=== PATIENT | female | born 2000 | race Caucasian/White ===

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

== ENCOUNTER 2019-02-17 10:42 | Outpatient (CLI) | payer OTHER ==
--- NOTE | 2019-02-18 09:02 | Ultrasound Report ---
Reason: LOWER ABD PAIN Procedure Date: 02/17/2019 Accession Number: [id number] / [id number] Procedure: US - Abdomen Complete CPT Code: FULL RESULT: EXAM: ABDOMEN ULTRASOUND EXAM DATE: 02/17/2019 12:26 PM. CLINICAL HISTORY: LOWER ABD PAIN. COMPARISON: None. TECHNIQUE: Real-time scanning was performed with static images obtained. FINDINGS: Liver: Normal in size and echotexture. 17 cm. Main portal vein flow: Hepatopetal. Gallbladder: Normal. No stones, wall thickening, or sonographic Daniels's sign. Biliary System: Common bile duct measures 4.5 mm. No intrahepatic or extrahepatic ductal dilatation. Pancreas: Imaged portion is unremarkable. Kidneys: Right: 11.1 cm longitudinally. Normal. No contour-deforming mass, stones, or hydronephrosis. Left: 11.9 cm longitudinally. Normal. No contour-deforming mass, stones, or hydronephrosis. Spleen: 13.2 cm. Normal in size and echotexture. Aorta and Inferior Vena Cava: Unremarkable. Free fluid: None. IMPRESSION: Normal abdomen ultrasound. RADIA
== END 2019-02-17 10:43 | disposition home or self-care (01) ==
LOC: DI 10:42
PROVIDERS: ATTEND Physician Assistant Medical
DX: R10.30 Lower abdominal pain, unspecified (principal)
CPT/HCPCS: 76700

== ENCOUNTER 2019-02-26 15:59 | Outpatient (CLI) | payer OTHER ==
--- NOTE | 2019-02-27 13:48 | XRAY Report ---
Reason: LOW BACK PAIN Procedure Date: 02/26/2019 Accession Number: [id number] / [id number] Procedure: XR - Thoracic Spine 2 View CPT Code: FULL RESULT: EXAM: THORACIC SPINE RADIOGRAPHY EXAM DATE: 02/26/2019 04:23 PM. CLINICAL HISTORY: LOW BACK PAIN. COMPARISON: None. TECHNIQUE: 3 views. FINDINGS: Alignment: There is mild mid thoracic dextroscoliosis, 10 degrees. No spondylolisthesis. Bones: No fractures or bone lesions. Disks: Normal. Disk heights are maintained. Soft Tissues: Normal. The visualized lungs and cardiomediastinal silhouette are normal. IMPRESSION: Mild mid thoracic dextroscoliosis; otherwise, negative thoracic spine radiography. RADIA
--- NOTE | 2019-02-27 13:49 | XRAY Report ---
Reason: LOW BACK PAIN Procedure Date: 02/26/2019 Accession Number: [id number] / [id number] Procedure: XR - Lumbar Spine 2 View CPT Code: FULL RESULT: EXAM: LUMBOSACRAL SPINE RADIOGRAPHY EXAM DATE: 02/26/2019 04:24 PM. CLINICAL HISTORY: LOW BACK PAIN. COMPARISONS: None. TECHNIQUE: 2 views. FINDINGS: Alignment: No spondylolisthesis or scoliosis. Bones: Five hny-lbg-gavzpsq lumbar vertebral bodies are present. No fractures or bone lesions. Disks: Disk heights are maintained. Facets: No degenerative changes. Sacroiliac Joints: Unremarkable. Soft Tissues: The visualized bowel gas pattern is normal. IMPRESSION: Negative lumbar spine radiography. RADIA
== END 2019-02-26 16:00 | disposition home or self-care (01) ==
LOC: DI 15:59
PROVIDERS: ATTEND Physician Assistant Medical
DX: M54.5 Low back pain (principal); M41.84 Other forms of scoliosis, thoracic region
CPT/HCPCS: 72070; 72100

== ENCOUNTER 2019-03-04 11:05 | Emergency (ER) | payer OTHER ==
[2019-03-04 11:39] LABS: BASOPHILS % (AUTO) 0.5 %; EOSINOPHILS # (AUTO) 0.1 10^3/uL (0.0-0.7); EOSINOPHILS % (AUTO) 1.8 %; HGB - HEMOGLOBIN 12.3 g/dL (12.0-16.0); LYMPHOCYTES # (AUTO) 1.9 10^3/uL (1.5-3.5); LYMPHOCYTES % (AUTO) 26.3 %; MEAN CORPUSCULAR HEMOGLOBIN 30.7 pg (27.0-31.0); MEAN CORPUSCULAR VOLUME 90.3 fL (81.0-99.0); MEAN PLATELET VOLUME 10.3 fL (7.9-10.8); MONOCYTES # (AUTO) 0.5 10^3/uL (0.0-1.0); MONOCYTES % (AUTO) 6.2 %; NEUTROPHILS # (AUTO) 4.7 10^3/uL (1.5-6.6); NEUTROPHILS % (AUTO) 64.9 %; PLT - PLATELET COUNT 286 10^3/uL (130-450); RED BLOOD COUNT 4.01 10^6/uL (4.20-5.40); RED CELL DISTRIBUTION WIDTH 12.3 % (12.0-15.0); WHITE BLOOD COUNT 7.3 x10^3/uL (4.8-10.8)
[2019-03-04 11:43] LABS: BILIRUBIN,URINE NEGATIVE (NEGATIVE); GLUCOSE, URINE (UA) NEGATIVE (NEGATIVE); KETONES,URINE (UA) NEGATIVE (NEGATIVE); LEUKOCYTE ESTERASE, URINE NEGATIVE (NEGATIVE); NITRITE,URINE NEGATIVE (NEGATIVE); OCCULT BLOOD,URINE NEGATIVE (NEGATIVE); PH,URINE 7.5 PH (5.0-7.5); PROTEIN,URINE NEGATIVE (NEGATIVE); UROBILINOGEN,URINE 0.2 (NORMAL) E.U./dL (NORMAL)
[2019-03-04 11:46] LABS: CLARITY,URINE CLEAR (CLEAR); HCG UR QUAL NEGATIVE
[2019-03-04 11:53] LABS: ALBUMIN 4.4 g/dL (3.2-5.5); ALBUMIN/GLOBULIN RATIO 1.8 (1.0-2.2); BILIRUBIN,TOTAL 0.8 mg/dL (0.2-1.0); CALCIUM 9.5 mg/dL (8.5-10.3); CREATININE 0.8 mg/dL (0.4-1.0); TOTAL PROTEIN 6.9 g/dL (6.7-8.2)
[2019-03-04] MEDS ORDERED: LIDOCAINE VISCOUS 2% 15 ML UDC MM STA (12:32)
[2019-03-04] MEDS ORDERED: MAG HYDROX/AL HYDROX/SIMETH 30 ML UDC PO STA (12:32)
--- NOTE | 2019-03-04 12:37 | ED Physician Documentation ---
PD HPI ABD PAIN - Stated complaint Stated Complaint: ABD PX/BACK PX - Chief complaint Chief Complaint: Abd Pain - History obtained from History obtained from: Patient - History of Present Illness Timing - onset: Other (Healthy young woman status post remote appendectomy in about 2009. For the last month she has had left flank, left abdomen, and right lower quadrant abdominal pain. She just finished up her menses, normal time, normal flow, her symptoms did not change. She is sexually active with a single partner, they have been together for 3 years and she denies significant concern for STDs. She has no vaginal discharge. She denies sore throat. She is short of breath especially yesterday. It hurts with movement and twisting as well. She denies nausea. She was constipated but is now regular with normal bowel movements. She was seen at [facility] about 4 days ago. Records reviewed, she had a mildly elevated white blood cell count at 12.9 with a left shift. The remainder of her labs were grossly negative note made of very mildly elevated AST at 42. She had a negative urine. CAT scan of the abdomen with IV contrast was normal. She was started on omeprazole.) Review of Systems Constitutional: denies: Fever, Chills, Fatigue, Weight Loss Nose: denies: Rhinorrhea / runny nose, Congestion Throat: denies: Sore throat Cardiac: denies: Chest pain / pressure, Palpitations, Pedal edema, Calf pain Respiratory: reports: Dyspnea. denies: Cough GI: reports: Abdominal Pain, Constipation. denies: Nausea, Vomiting, Diarrhea, Hematemesis, Bloody / black stool : denies: Dysuria, Frequency PD PAST MEDICAL HISTORY - Past Medical History Past Medical History: No - Past Surgical History Past Surgical History: Yes General: Appendectomy - Present Medications Home Medications: Ambulatory Orders Medication Instructions Recorded Confirmed Hydrocodone/Acetaminophen 1 - 2 each PO Q6H PRN #14 tablet 03/04/19 [Hydrocodon-Acetaminophen 5-325] Omeprazole 20 mg PO 03/04/19 Tizanidine HCl [Zanaflex] 2 mg PO TID PRN 03/04/19 03/04/19 - Allergies Allergies/Adverse Reactions: Allergies Allergy/AdvReac Type Severity Reaction Status Date / Time No Known Drug Allergies Allergy Verified 03/04/19 11:14 - Social History Does the pt smoke?: No Smoking Status: Never smoker - Family History Family history: reports: Non contributory PD ED PE NORMAL - Vitals Vital signs reviewed: Yes - General General: Alert and oriented X 3, No acute distress - HEENT HEENT: PERRL, EOMI, Pharynx benign - Neck Neck: Supple, no meningeal sign, No bony TTP, No adenopathy - Cardiac Cardiac: RRR, No murmur - Respiratory Respiratory: No respiratory distress, Clear bilaterally - Abdomen Abdomen: Normal bowel sounds, Soft, Other (Mild tenderness of left upper quadrant greater than the right lower quadrant greater than the left lower quadrant) - Back Back: No CVA TTP - Derm Derm: Normal color, Warm and dry - Extremities Extremities: No edema, No calf tenderness / cord - Neuro Neuro: Alert and oriented X 3, Normal speech Results - Vitals Vitals: Vital Signs - 24 hr 03/04/19 03/04/19 03/04/19 11:09 12:49 13:07 Temperature 36 C L 37.1 C Heart Rate 54 L 57 L 79 Respiratory 16 16 16 Rate Blood Pressure 115/71 123/87 H 118/66 O2 Saturation 100 100 98 Oxygen O2 Source Room air - Labs Labs: Laboratory Tests 03/04/19 03/04/19 03/04/19 11:17 11:30 11:30 WBC 7.3 RBC 4.01 L Hgb 12.3 Hct 36.2 L MCV 90.3 MCH 30.7 MCHC 34.0 RDW 12.3 Plt Count 286 MPV 10.3 Neut # (Auto) 4.7 Lymph # (Auto) 1.9 Will # (Auto) 0.5 Eos # (Auto) 0.1 Baso # (Auto) 0.0 Absolute Nucleated RBC 0.00 Nucleated RBC % 0.0 D-Dimer Sodium 143 Potassium 3.9 Chloride 108 Carbon Dioxide 27 Anion Gap 8.0 BUN 8 Creatinine 0.8 Estimated GFR (MDRD) 91 Glucose 101 H Calcium 9.5 Total Bilirubin 0.8 AST 23 ALT 30 Alkaline Phosphatase 37 L Total Protein 6.9 Albumin 4.4 Globulin 2.5 Albumin/Globulin Ratio 1.8 Lipase 36 Urine Color YELLOW Urine Clarity CLEAR Urine pH 7.5 Ur Specific [place] 1.015 Urine Protein NEGATIVE Urine Glucose (UA) NEGATIVE Urine Ketones NEGATIVE Urine Occult Blood NEGATIVE Urine Nitrite NEGATIVE Urine Bilirubin NEGATIVE Urine Urobilinogen 0.2 (NORMAL) Ur Leukocyte Esterase NEGATIVE Ur Microscopic Review NOT INDICATED Urine Culture Comments NOT INDICATED Urine HCG, Qual NEGATIVE Infectious Will Assay 03/04/19 03/04/19 11:30 11:30 WBC RBC Hgb Hct MCV MCH MCHC RDW Plt Count MPV Neut # (Auto) Lymph # (Auto) Will # (Auto) Eos # (Auto) Baso # (Auto) Absolute Nucleated RBC Nucleated RBC % D-Dimer < 200.0 L Sodium Potassium Chloride Carbon Dioxide Anion Gap BUN Creatinine Estimated GFR (MDRD) Glucose Calcium Total Bilirubin AST ALT Alkaline Phosphatase Total Protein Albumin Globulin Albumin/Globulin Ratio Lipase Urine Color Urine Clarity Urine pH Ur Specific [place] Urine Protein Urine Glucose (UA) Urine Ketones Urine Occult Blood Urine Nitrite Urine Bilirubin Urine Urobilinogen Ur Leukocyte Esterase Ur Microscopic Review Urine Culture Comments Urine HCG, Qual Infectious Will Assay NEGATIVE - Rads (name of study) Pelvic sono Radiology: EMP read contemporaneously (1.6 cm right paraovarian cyst with small free fluid) PD MEDICAL DECISION MAKING - ED course ED course: This young lady presents with persistent abdominal and pelvic pain. Work-up so far has been negative. Today found to have paraovarian cyst which may be causative and gynecology follow-up was advised. Departure - Departure Disposition: 01 Home, Self Care Clinical Impression: Cyst of ovary Qualifiers: Laterality: right Qualified Code(s): N83.201 - Unspecified ovarian cyst, right side Condition: Good Record reviewed to determine appropriate education?: Yes Instructions: ED Cyst Ovarian Follow-Up: [facility] [Provider Group] Prescriptions: Hydrocodone/Acetaminophen [Hydrocodon-Acetaminophen 5-325] 1 - 2 each PO Q6H PRN #14 tablet PRN Reason: pain Comments: You can continue the ibuprofen as needed for pain, add the hydrocodone when it is bad. Do not drink or drive with hydrocodone. Follow-up with the gynecology office for further evaluation and treatment. Return for new worsening symptoms.
--- NOTE | 2019-03-04 14:16 | Ultrasound Report ---
Reason: pelvic pain, R Procedure Date: 03/04/2019 Accession Number: [id number] / [id number] Procedure: US - Pelvic w/Transvag+Doppler Comp CPT Code: FULL RESULT: EXAM: PELVIC ULTRASOUND EXAM DATE: 03/04/2019 02:07 PM. CLINICAL HISTORY: Pelvic pain, R. COMPARISON: None. TECHNIQUE: Realtime transabdominal pelvic scan performed to identify the uterus and adnexa and as an overview of other pelvic structures, followed by transvaginal scan to provide greater detail of the uterus and adnexa, with static image documentation. FINDINGS: Uterus: 6.1 x 2.9 x 4.1 cm, volume 38 cc. Anteverted position. Normal overall size and echotexture. Masses: None. Endometrium: 1.8 mm. Normal. Cervix: Unremarkable. Right Ovary: 3.8 x 2 x 2.6 cm, volume 10.3 cc. Normal echotexture and blood flow. Peak systolic velocity 9.3 cm per second. Resistive index 0.57. Arterial and venous blood flow Left Ovary: 3.2 x 2 x 2.5 cm, volume 8.3 cc. Normal echotexture and blood flow. Peak systolic velocity 17 cm/s. Resistive index 0.6. Arterial and venous blood flow Free Fluid: Free fluid along right ovary with right paraovarian or peritoneal 1.6 cm cyst Other: None. IMPRESSION: 1. Simple right paraovarian or peritoneal 1.6 cm cyst. 2. Small amount of simple free fluid in the cul-de-sac, adjacent to the right ovary 3. Normal blood flow bilateral ovaries RADIA
[2019-03-04 14:42] VITALS: BP 116/64
== END 2019-03-04 14:42 | disposition home or self-care (01) ==
LOC: ED 11:05
DX: N83.201 Unspecified ovarian cyst, right side (principal)
CPT/HCPCS: 36415; 76830; 76856; 80053; 81003; 81025; 83690; 85025; 85379; 86308; 93975; 99283; 99284; A9270; 81001; 87086

== ENCOUNTER 2019-03-20 08:00 | Outpatient (CLI) | payer OTHER ==
[2019-03-21 22:02] LABS: TRICHOMONAS VAGINALIS DNA NEGATIVE (NEGATIVE)
== END 2019-03-20 08:01 | disposition home or self-care (01) ==
LOC: LAB.R 08:00
PROVIDERS: ATTEND Obstetrics & Gynecology
DX: N83.201 Unspecified ovarian cyst, right side (principal)
CPT/HCPCS: 87491; 87591; 87661

== ENCOUNTER 2019-04-14 10:00 | Outpatient (CLI) | payer OTHER ==
--- NOTE | 2019-04-14 11:48 | Ultrasound Report ---
Reason: OVARIAN CYST RIGHT SIDE Procedure Date: 04/14/2019 Accession Number: [id number] / [id number] Procedure: US - Pelvic w/Transvaginal CPT Code: Final Report FULL RESULT: EXAM: PELVIC ULTRASOUND EXAM DATE: 04/14/2019 10:58 AM. CLINICAL HISTORY: Right ovarian cyst. COMPARISON: PEL NON OB W/TV DOP 03/04/2019 1:17 PM. TECHNIQUE: Realtime transabdominal pelvic scan performed to identify the uterus and adnexa and as an overview of other pelvic structures, followed by transvaginal scan to provide greater detail of the uterus and adnexa, with static image documentation. FINDINGS: Uterus: 7.2 x 2.6 x 3.8 cm, volume 37 cc. Anteverted position. Normal overall size and echotexture. Masses: None. Endometrium: 5 mm. Normal. Cervix: Unremarkable. Right Ovary: 3.5 x 2.5 x 3.1 cm, volume 14 cc. Small 2.4 cm benign physiologic follicle is seen, otherwise, normal echotexture and blood flow. Left Ovary: 2.9 x 2.6 x 2.0 cm, volume 7.9 cc. Normal echotexture and blood flow. Free Fluid: Small simple-appearing fluid is seen in the dependent pelvis, within normal physiologic limits. Other: None. IMPRESSION: Negative pelvic ultrasound with previous right parovarian cyst no longer seen. Small 2.4 cm simple physiologic follicle is seen within the ovary, normal. No complex cyst or adnexal mass is demonstrated. RADIA
== END 2019-04-14 10:01 | disposition home or self-care (01) ==
LOC: DI 10:00
PROVIDERS: ATTEND Obstetrics & Gynecology
DX: N83.201 Unspecified ovarian cyst, right side (principal)
CPT/HCPCS: 76830; 76856

== ENCOUNTER 2019-04-16 18:11 | Emergency (ER) | payer OTHER ==
[2019-04-16 18:47] LABS: BILIRUBIN,URINE NEGATIVE (NEGATIVE); GLUCOSE, URINE (UA) NEGATIVE (NEGATIVE); KETONES,URINE (UA) 40 mg/dL (NEGATIVE); LEUKOCYTE ESTERASE, URINE NEGATIVE (NEGATIVE); NITRITE,URINE NEGATIVE (NEGATIVE); OCCULT BLOOD,URINE NEGATIVE (NEGATIVE); PROTEIN,URINE NEGATIVE (NEGATIVE); UROBILINOGEN,URINE 0.2 (NORMAL) E.U./dL (NORMAL)
[2019-04-16] MEDS ORDERED: SODIUM CHLORIDE 0.9% 1,000 ML IV ONE (19:04)
[2019-04-16] MEDS ORDERED: ONDANSETRON 4 MG/2 ML VIAL IVP STA (19:04)
[2019-04-16 19:06] LABS: CLARITY,URINE CLEAR (CLEAR); HCG UR QUAL NEGATIVE
--- NOTE | 2019-04-16 19:06 | ED Physician Documentation ---
PD HPI ABD PAIN - Stated complaint Stated Complaint: NAUSEA/AB PX/R FLANK PX/BACK PX - Chief complaint Chief Complaint: Abd Pain - History obtained from History obtained from: Patient - History of Present Illness Timing - onset: Other (This 18-year-old woman without history of abdominal surgeries has been dealing with left-sided abdominal pain for the last 2 months. Initially she was diagnosed with an ovarian cyst but subsequently had an ultrasound 2 days ago which showed resolution of same. Despite that the pain continues and is severe at times. Its associated with constipation, her last bowel movement was 2 to 3 days ago despite taking MiraLAX and fiber supplements. She denies any weight loss to this time. She is been nauseous but not vomiting. She is sexually active but has had negative STD testing during that time. She has had irregular menses despite taking control.) Review of Systems Ten Systems: 10 systems reviewed and negative Constitutional: denies: Fever, Chills, Fatigue, Weight Loss GI: reports: Abdominal Pain, Nausea, Constipation. denies: Vomiting, Diarrhea, Hematemesis, Bloody / black stool PD PAST MEDICAL HISTORY - Past Surgical History Past Surgical History: Yes General: Appendectomy - Present Medications Home Medications: Ambulatory Orders Medication Instructions Recorded Confirmed Hydrocodone/Acetaminophen 1 - 2 each PO Q6H PRN #14 tablet 03/04/19 [Hydrocodon-Acetaminophen 5-325] Omeprazole 20 mg PO 03/04/19 Tizanidine HCl [Zanaflex] 2 mg PO TID PRN 03/04/19 03/04/19 Dicyclomine [Bentyl] 20 mg PO QID PRN #15 capsule 04/16/19 Doxycycline Hyclate 100 mg PO BID #20 capsule 04/16/19 Ondansetron Odt [Zofran] 4 mg TL Q6H PRN #10 tablet 04/16/19 - Allergies Allergies/Adverse Reactions: Allergies Allergy/AdvReac Type Severity Reaction Status Date / Time No Known Drug Allergies Allergy Verified 04/16/19 18:21 - Social History Does the pt smoke?: No Smoking Status: Never smoker PD ED PE NORMAL - Vitals Vital signs reviewed: Yes - General General: Alert and oriented X 3, No acute distress - Respiratory Respiratory: No respiratory distress, Clear bilaterally - Abdomen Abdomen: Normal bowel sounds, Soft, Other (Moderately tender to the left mid abdomen without surgical signs) - Female 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3 Hct 38.8 MCV 88.0 MCH 30.2 MCHC 34.3 RDW 12.1 Plt Count 293 MPV 10.5 Neut # (Auto) 8.2 H Lymph # (Auto) 2.3 [place] # (Auto) 0.6 Eos # (Auto) 0.1 Baso # (Auto) 0.1 Absolute Nucleated RBC 0.00 Nucleated RBC % 0.0 Sodium 139 Potassium 3.5 Chloride 104 Carbon Dioxide 26 Anion Gap 9.0 BUN 9 Creatinine 0.7 Estimated GFR (MDRD) 107 Glucose 96 Calcium 9.3 Total Bilirubin 1.2 H AST 23 ALT 24 Alkaline Phosphatase 31 L Total Protein 7.5 Albumin 4.5 Globulin 3.0 Albumin/Globulin Ratio 1.5 Lipase 36 Urine Color YELLOW Urine Clarity CLEAR Urine pH 7.0 Ur Specific [place] 1.010 Urine Protein NEGATIVE Urine Glucose (UA) NEGATIVE Urine Ketones 40 H Urine Occult Blood NEGATIVE Urine Nitrite NEGATIVE Urine Bilirubin NEGATIVE Urine Urobilinogen 0.2 (NORMAL) Ur Leukocyte Esterase NEGATIVE Ur Microscopic Review NOT INDICATED Urine Culture Comments NOT INDICATED Urine HCG, Qual NEGATIVE - Rads (name of study) CT A/P Radiology: EMP read contemporaneously (Cul-de-sac free fluid, otherwise negative exam) PD MEDICAL DECISION MAKING - ED course ED course: 18-year-old woman presents with now subacute abdominal pain. She is had a negative gallbladder ultrasound. She had a pelvic ultrasound showing a right ovarian cyst which has since resolved. Today a CT was done showing some pelvic free fluid. Otherwise her work-up was negative except for a mild leukocytosis. She was fairly tender on pelvic exam this could be consistent with an early PID for which she will be trialed on some antibiotics but she does have follow-up with GI in a few days. Departure - Departure Disposition: 01 Home, Self Care Clinical Impression: Abdominal pain Qualifiers: Abdominal location: generalized Qualified Code(s): R10.84 - Generalized abdominal pain Condition: Good Record reviewed to determine appropriate education?: Yes Instructions: ED Abdominal Pain Unkn Cause Prescriptions: Dicyclomine [Bentyl] 20 mg PO QID PRN #15 capsule PRN Reason: Abdominal Pain Doxycycline Hyclate 100 mg PO BID #20 capsule Ondansetron Odt [Zofran] 4 mg TL Q6H PRN #10 tablet PRN Reason: Nausea / Vomiting Comments: The cause of your abdominal pain is not completely clear. The only pertinent positive finding tonight besides mild dehydration was a tender pelvic exam and free fluid on an abdominal CT. We will trial some antibiotics but I am happy that you are seeing a film processing supervisor later this week. Return for new or worsening symptoms. Discharge Date/Time: 04/16/19 22:10
[2019-04-16 19:07] LABS: BASOPHILS # (AUTO) 0.1 10^3/uL (0.0-0.1); BASOPHILS % (AUTO) 0.4 %; EOSINOPHILS # (AUTO) 0.1 10^3/uL (0.0-0.7); HGB - HEMOGLOBIN 13.3 g/dL (12.0-16.0); LYMPHOCYTES # (AUTO) 2.3 10^3/uL (1.5-3.5); LYMPHOCYTES % (AUTO) 20.5 %; MEAN CORPUSCULAR HEMOGLOBIN 30.2 pg (27.0-31.0); MEAN CORPUSCULAR HGB CONC 34.3 g/dL (32.0-36.0); MEAN PLATELET VOLUME 10.5 fL (7.9-10.8); MONOCYTES # (AUTO) 0.6 10^3/uL (0.0-1.0); MONOCYTES % (AUTO) 5.4 %; NEUTROPHILS # (AUTO) 8.2 10^3/uL (1.5-6.6); NEUTROPHILS % (AUTO) 72.1 %; PLT - PLATELET COUNT 293 10^3/uL (130-450); RED BLOOD COUNT 4.41 10^6/uL (4.20-5.40); RED CELL DISTRIBUTION WIDTH 12.1 % (12.0-15.0); WHITE BLOOD COUNT 11.3 x10^3/uL (4.8-10.8)
[2019-04-16 19:27] LABS: ALBUMIN 4.5 g/dL (3.2-5.5); ALBUMIN/GLOBULIN RATIO 1.5 (1.0-2.2); BILIRUBIN,TOTAL 1.2 mg/dL (0.2-1.0); CALCIUM 9.3 mg/dL (8.5-10.3); CREATININE 0.7 mg/dL (0.4-1.0); TOTAL PROTEIN 7.5 g/dL (6.7-8.2)
[2019-04-16] MEDS ORDERED: IOVERSOL 320 50 ML VIAL ONE (19:27)
[2019-04-16] MEDS ORDERED: IOVERSOL 320 100 ML VIAL IVP ONE ×2 (19:27→20:24)
[2019-04-16] MEDS ORDERED: IOVERSOL 320 50 ML VIAL PO ONE (20:24)
[2019-04-16 20:50] VITALS: BP 119/78
--- NOTE | 2019-04-16 21:01 | CT Report ---
Reason: IV and PO, L abd pain Procedure Date: 04/16/2019 Accession Number: [id number] / [id number] Procedure: CT - Abdomen/Pelvis W CPT Code: Final Report FULL RESULT: EXAM: CT ABDOMEN AND PELVIS EXAM DATE: 04/16/2019 08:27 PM. CLINICAL HISTORY: IV and PO, L abd pain. Previous appendectomy. COMPARISONS: PELVIC W/TRANSVAGINAL 04/14/2019 10:24 AM. TECHNIQUE: Routine helical CT imaging was performed through the abdomen and pelvis. IV contrast: OPTI 320 100ML. Enteric contrast: Yes. Reconstructions: Coronal and sagittal. In accordance with CT protocol optimization, one or more of the following dose reduction techniques were utilized for this exam: automated exposure control, adjustment of mA and/or KV based on patient size, or use of iterative reconstructive technique. FINDINGS: Lung Bases: Unremarkable. Liver: Normal. No masses. Gallbladder/Bile Ducts: Unremarkable. Spleen: Normal. Pancreas: Normal. Adrenal Glands: Normal. Kidneys: Normal. No masses or hydronephrosis. Peritoneal Cavity/Bowel: There is oral contrast within the stomach, small bowel and cecum. No dilated bowel or mechanical bowel obstruction. No free air. No inflammation around the terminal ileum or cecum. Pelvic Organs: There is free fluid in the posterior cul-de-sac of the pelvis measuring 70 x 26 x 22 mm. No abscess. Uterus is normal in size. Urinary bladder appears unremarkable. There is a hypodense lesion in the right ovary measuring 14 mm in diameter. Vasculature: No aneurysms or other significant abnormality. Bones: No significant abnormality. Other: None. IMPRESSION: 1. Small free fluid in posterior cul-de-sac and pelvis. 2. 14 mm follicle or cyst in the right ovary. 3. No other significant acute abnormality. RADIA
[2019-04-16] MEDS ORDERED: DOXYCYCLINE 100 MG TABLET PO STA (21:29)
[2019-04-16] MEDS ORDERED: cefTRIAXone 1 GM in SODIUM CHLORIDE 0.9% MINIBAG 100 ML IV STA (21:29)
[2019-04-17 21:34] LABS: TRICHOMONAS VAGINALIS DNA NEGATIVE (NEGATIVE)
== END 2019-04-16 22:10 | disposition home or self-care (01) ==
LOC: ED 18:11
DX: R10.84 Generalized abdominal pain (principal); E86.0 Dehydration; D72.829 Elevated white blood cell count, unspecified; N83.201 Unspecified ovarian cyst, right side
CPT/HCPCS: 36415; 74177; 80053; 81003; 81025; 83690; 85025; 87491; 87591; 87661; 96374; 96375; 99284; A9270; Q9967; 81001; 87086

== ENCOUNTER 2019-04-29 15:13 | Emergency (ER) | payer OTHER ==
[2019-04-29 16:08] LABS: BASOPHILS # (AUTO) 0.1 10^3/uL (0.0-0.1); BASOPHILS % (AUTO) 0.6 %; EOSINOPHILS # (AUTO) 0.1 10^3/uL (0.0-0.7); HGB - HEMOGLOBIN 13.2 g/dL (12.0-16.0); LYMPHOCYTES # (AUTO) 1.7 10^3/uL (1.5-3.5); LYMPHOCYTES % (AUTO) 19.4 %; MEAN CORPUSCULAR HEMOGLOBIN 30.3 pg (27.0-31.0); MEAN CORPUSCULAR HGB CONC 33.6 g/dL (32.0-36.0); MEAN CORPUSCULAR VOLUME 90.1 fL (81.0-99.0); MEAN PLATELET VOLUME 10.1 fL (7.9-10.8); MONOCYTES # (AUTO) 0.5 10^3/uL (0.0-1.0); MONOCYTES % (AUTO) 5.5 %; NEUTROPHILS # (AUTO) 6.4 10^3/uL (1.5-6.6); PLT - PLATELET COUNT 307 10^3/uL (130-450); RED BLOOD COUNT 4.36 10^6/uL (4.20-5.40); RED CELL DISTRIBUTION WIDTH 12.4 % (12.0-15.0); WHITE BLOOD COUNT 8.7 x10^3/uL (4.8-10.8)
[2019-04-29 16:26] LABS: ALBUMIN 4.7 g/dL (3.2-5.5); ALBUMIN/GLOBULIN RATIO 1.6 (1.0-2.2); BILIRUBIN,TOTAL 1.3 mg/dL (0.2-1.0); CALCIUM 9.3 mg/dL (8.5-10.3); CREATININE 0.7 mg/dL (0.4-1.0); TOTAL PROTEIN 7.7 g/dL (6.7-8.2)
--- NOTE | 2019-04-29 17:06 | ED Physician Documentation ---
History of Present Illness - Stated complaint Stated Complaint: LT BACK,NECK, & SIDE PX - Chief complaint Chief Complaint: Abd Pain - Additonal information Additional information: This is a 18-year-old female who presents with ongoing abdominal pain. Patient has had abdominal pain for months, It is typically in the left lower quadrant but has been across the lower abdomen at times. It occasionally will radiate to her back as well. She currently is having 8 out of 10 pain in her left lower quadrant in her bilateral flanks. She had a CT scan for this in the last 2 days which showed a trace amount of free fluid, no other obvious abnormalities. She had a colonoscopy yesterday and this showed no abnormalities there were some biopsies taken which are being processed currently. She is also had an ultrasound of her ovaries, in the past she did have a 1.2 cm cyst on the right, but this resolved on her most recent ultrasound. She has had a negative STD testing, and her lab work has been unrevealing. She has variously been treated with nonsteroidal anti-inflammatory medications, dicyclomine, and recently some Percocet. Given that her abdominal pain was persistent and is worsened in the last day, they called her GI doctor told her to get checked out in the emergency department. She states that while this is worsened over the last 24 hours, it is within the realm of what she is experienced over the last several months. Basil adhikari has some nausea. She has not had a bowel movement since the colonoscopy. She is tolerating fluids. Review of Systems Constitutional: denies: Fever Cardiac: denies: Chest pain / pressure Respiratory: denies: Dyspnea GI: reports: Abdominal Pain, Nausea : denies: Dysuria Neurologic: denies: Generalized weakness PD PAST MEDICAL HISTORY - Past Surgical History Past Surgical History: Yes General: Appendectomy - Present Medications Home Medications: Ambulatory Orders Medication Instructions Recorded Confirmed Hydrocodone/Acetaminophen 1 - 2 each PO Q6H PRN #14 tablet 03/04/19 [Hydrocodon-Acetaminophen 5-325] Omeprazole 20 mg PO 03/04/19 Tizanidine HCl [Zanaflex] 2 mg PO TID PRN 03/04/19 03/04/19 Dicyclomine [Bentyl] 20 mg PO QID PRN #15 capsule 04/16/19 Doxycycline Hyclate 100 mg PO BID #20 capsule 04/16/19 Ondansetron Odt [Zofran] 4 mg TL Q6H PRN #10 tablet 04/16/19 Metoclopramide [Reglan] 10 mg PO Q6H PRN #10 tablet 04/29/19 - Allergies Allergies/Adverse Reactions: Allergies Allergy/AdvReac Type Severity Reaction Status Date / Time No Known Drug Allergies Allergy Verified 04/16/19 18:21 - Social History Does the pt smoke?: No Smoking Status: Never smoker PD ED PE NORMAL - Vitals Vital signs reviewed: Yes - General General: Alert and oriented X 3, No acute distress - HEENT HEENT: PERRL - Neck Neck: Supple, no meningeal sign - Cardiac Cardiac: RRR, No murmur - Respiratory Respiratory: Clear bilaterally - Abdomen Abdomen: Normal bowel sounds, Soft, Non distended, Other (Mild diffuse abdominal tenderness, no guarding.) - Derm Derm: Warm and dry - Extremities Extremities: No deformity - Neuro Neuro: Alert and oriented X 3 - Psych Psych: Normal mood, Normal affect Results - Vitals Vitals: Oxygen O2 Source Room air - Labs Labs: Laboratory Tests 04/29/19 04/29/19 04/29/19 16:04 16:04 17:56 WBC 8.7 RBC 4.36 Hgb 13.2 Hct 39.3 MCV 90.1 MCH 30.3 MCHC 33.6 RDW 12.4 Plt Count 307 MPV 10.1 Neut # (Auto) 6.4 Lymph # (Auto) 1.7 Love # (Auto) 0.5 Eos # (Auto) 0.1 Baso # (Auto) 0.1 Absolute Nucleated RBC 0.00 Nucleated RBC % 0.0 Sodium 140 Potassium 4.1 Chloride 105 Carbon Dioxide 26 Anion Gap 9.0 BUN 8 Creatinine 0.7 Estimated GFR (MDRD) 107 Glucose 100 Calcium 9.3 Total Bilirubin 1.3 H AST 23 ALT 28 Alkaline Phosphatase 30 L Total Protein 7.7 Albumin 4.7 Globulin 3.0 Albumin/Globulin Ratio 1.6 Lipase 39 Urine Color YELLOW Urine Clarity CLEAR Urine pH 7.0 Ur Specific [place] 1.010 Urine Protein NEGATIVE Urine Glucose (UA) NEGATIVE Urine Ketones NEGATIVE Urine Occult Blood TRACE-LYSE Urine Nitrite NEGATIVE Urine Bilirubin NEGATIVE Urine Urobilinogen 0.2 (NORMAL) Ur Leukocyte Esterase NEGATIVE Ur Microscopic Review NOT INDICATED Urine Culture Comments NOT INDICATED Urine HCG, Qual 04/29/19 17:56 WBC RBC Hgb Hct MCV MCH MCHC RDW Plt Count MPV Neut # (Auto) Lymph # (Auto) Love # (Auto) Eos # (Auto) Baso # (Auto) Absolute Nucleated RBC Nucleated RBC % Sodium Potassium Chloride Carbon Dioxide Anion Gap BUN Creatinine Estimated GFR (MDRD) Glucose Calcium Total Bilirubin AST ALT Alkaline Phosphatase Total Protein Albumin Globulin Albumin/Globulin Ratio Lipase Urine Color Urine Clarity Urine pH Ur Specific [place] 1.010 Urine Protein Urine Glucose (UA) Urine Ketones Urine Occult Blood Urine Nitrite Urine Bilirubin Urine Urobilinogen Ur Leukocyte Esterase Ur Microscopic Review Urine Culture Comments Urine HCG, Qual NEGATIVE PD MEDICAL DECISION MAKING - ED course Complexity details: considered differential (Enteritis, appendicitis, cholecytitis, pancreatitis, UTI, pyelonephritis, ovarian torsion) ED course: Pt is well appearing on exam, she has diffuse tenderness without guarding. Reviewing her records and speaking with her and her family, she has had an extensive workup including CTs, multiple ultrasounds, and a colonoscopy, all of which have been unrevealing. Her discomfort tonight is within the realm of what she has been experiencing for several months. CBC, CMP, lipase, UA, HCG all unrevealing. She was given zofran for nausea. On repeat exam her abdomen continues to be very mildly tender but this is migratory, she has no focal tenderness, specifically no focal RLQ or RUQ tenderness. Vital signs unremarkable. I discussed that given the chronicity of her symptoms and her extensive work up as well as her exam and labs tonight, I do not think that repeat imaging will be revealing. Torsion is unlikely given the migratory and diffuse nature of the discomfort and her multiple past ultrasounds. STI testing has been negative. I spoke on the phone with Dr. Swanson spoke on phone about our labs and work up, and continued outpatient follow up. He agrees with this plan. I discussed continued GI follow up and PCP follow up with patient, and also discussed return precautions. She does endorse some depression/anxiety, which could be a contributing factor to her symptoms and I recommended adressing this as well. No SI. Pt and her parents verbalize understanding and she was discharged home in their care. Departure - Departure Disposition: 01 Home, Self Care Clinical Impression: Abdominal pain Qualifiers: Abdominal location: generalized Qualified Code(s): R10.84 - Generalized abdominal pain Condition: Good Instructions: ED Abdominal Pain Unkn Cause Follow-Up: Your,Public Health Policy Analyst [Other] Jaki Sanchez PA-C [Primary Care Provider] - Within 1 week Prescriptions: Metoclopramide [Reglan] 10 mg PO Q6H PRN #10 tablet PRN Reason: Nausea / Vomiting Comments: You were seen today for abdominal pain. Your labs are reassuring today. Your imaging that has been done recently has not given us an obvious answer for your discomfort, it sounds like your colonoscopy has not either. 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 Try the reglan, which may be helpful for nausea and potentially abdominal discomfort as well. Keep a log of things that seem to make your pain worse. Other health problems such as migraines, depression, anxiety can sometimes contribute to abdominal pain as well, ensuring good control of these health problems may be helpful as well. If you are having significantly worsening pain, persistent vomiting, fever, or other concerning symptoms please return to the emergency department. Discharge Date/Time: 04/29/19 18:55
[2019-04-29] MEDS ORDERED: ONDANSETRON ODT 4 MG TABLET TL STA (17:38)
[2019-04-29 18:18] LABS: BILIRUBIN,URINE NEGATIVE (NEGATIVE); GLUCOSE, URINE (UA) NEGATIVE (NEGATIVE); KETONES,URINE (UA) NEGATIVE (NEGATIVE); LEUKOCYTE ESTERASE, URINE NEGATIVE (NEGATIVE); NITRITE,URINE NEGATIVE (NEGATIVE); OCCULT BLOOD,URINE TRACE-LYSE (NEGATIVE); PROTEIN,URINE NEGATIVE (NEGATIVE); UROBILINOGEN,URINE 0.2 (NORMAL) E.U./dL (NORMAL)
[2019-04-29 18:22] LABS: CLARITY,URINE CLEAR (CLEAR)
[2019-04-29 18:23] LABS: HCG UR QUAL NEGATIVE
[2019-04-29 18:24] VITALS: BP 110/68
== END 2019-04-29 18:55 | disposition home or self-care (01) ==
LOC: ED 15:13
DX: R10.84 Generalized abdominal pain (principal); R11.0 Nausea; F32.9 Major depressive disorder, single episode, unspecified; F41.9 Anxiety disorder, unspecified
CPT/HCPCS: 36415; 80053; 81003; 81025; 83690; 85025; 99283; 99284; Q0162; 81001; 87086